=== PATIENT | male | born 2000 | race Caucasian/White ===

== ENCOUNTER 2023-02-13 00:25 | Emergency (ER) | payer BC ==
[~2023-02-13] VITALS: Ht 175.3 cm; Wt 82.6 kg
[2023-02-13 00:44] VITALS: BP 131/79
--- NOTE | 2023-02-13 00:49 | NUR ---
Patient to bed 6.
[2023-02-13] MEDS ORDERED: TETRACAINE HCL/PF 0.5% OPTH 4 ML BTL OP ONE (00:50)
[2023-02-13] MEDS ORDERED: FLUORESCEIN OPTH STRIP 1 MG ONE (00:51)
--- NOTE | 2023-02-13 00:54 | NUR ---
ER Physician, Dr. Ko assessing patient.
--- NOTE | 2023-02-13 00:54 | NUR ---
Patient resting in bed, A/Ox4, chest rise and fall symmetrical, no s/s of distress
[2023-02-13] MEDS ORDERED: FLUORESCEIN OPTH STRIP 1 MG OP ONE (01:00)
[2023-02-13] MEDS ORDERED: OFLO5SOL2 RIGHT EYE (01:08)
[2023-02-13] MEDS ORDERED: ERYTHROMYCIN 0.5% OPTH OINT 1 GM TUBE OP ONE (01:15)
--- NOTE | 2023-02-13 01:35 | NUR ---
ER Physician, Dr. Ko with patient.
--- NOTE | 2023-02-13 01:40 | NUR ---
Patient resting in bed, A/Ox4, chest rise and fall symmetrical, no c/o pain or s/s of distress
[2023-02-13 01:49] VITALS: BP 124/85
== END 2023-02-13 01:49 | disposition home or self-care (01) ==
LOC: MED 00:25
DX: S05.01XA Injury of conjunctiva and corneal abrasion without foreign body, right eye, initial encounter (principal); X58.XXXA Exposure to other specified factors, initial encounter; Y93.89 Activity, other specified; Y92.89 Other specified places as the place of occurrence of the external cause; Y99.8 Other external cause status
CPT/HCPCS: 99284